=== PATIENT | female | born 1970 | race Caucasian/White ===

== ENCOUNTER 2022-12-05 21:59 | Emergency (ER) | payer MEDICAID ==
[~2022-12-05] VITALS: Ht 175.3 cm; Wt 72.6 kg
[2022-12-05 22:25] VITALS: O2SAT 98
[2022-12-05] MEDS ORDERED: DIVA250T4 PO (22:41)
[2022-12-05] MEDS ORDERED: SERT100T PO (22:41)
[2022-12-05] MEDS ORDERED: LORA0.5T48 PO (22:41)
[2022-12-05] MEDS ORDERED: BUSP5TAB3 PO (22:41)
--- NOTE | 2022-12-05 22:41 | NUR ---
at bedside. exam in progress.
[2022-12-05] MEDS ORDERED: SUMATRIPTAN SUCCINATE 6 MG/0.5 ML VIAL SQ ONE ×2 (22:45→23:34)
[2022-12-05] MEDS ORDERED: KETOROLAC TROMETHAMINE 30 MG INJ IVP ONE (22:45)
[2022-12-05] MEDS ORDERED: METOCLOPRAMIDE HCL 10 MG/2 ML VIAL IV ONE (22:45)
[2022-12-05] MEDS ORDERED: IV NS 1000 ML 1,000 ML IV ONE (22:45)
[2022-12-05 23:01] LABS: HEMATOCRIT 38.2 % (31.2-41.9); MEAN CORPUSCULAR HEMOGLOBIN 28.4 uug (24.7-32.8); MEAN CORPUSCULAR VOLUME 85.2 fL (75.5-95.3); PLATELET COUNT (AUTO) 168 K/uL (179-408)
[2022-12-05 23:11] LABS: CREATININE 0.7 mg/dL (0.6-1.3); POTASSIUM 3.8 mmol/L (3.5-5.1)
[2022-12-05] MEDS ORDERED: KETOROLAC TROMETHAMINE 30 MG INJ ONE (23:33)
[2022-12-05] MEDS ORDERED: METOCLOPRAMIDE HCL 10 MG/2 ML VIAL ONE (23:34)
--- NOTE | 2022-12-06 00:37 | NUR ---
Patient resting in bed, states that headache is better but not gone, will continue to monitor.
[2022-12-06] MEDS ORDERED: CYANOCOBALAMIN 1000 MCG/ML VIAL ONE (00:42)
[2022-12-06] MEDS ORDERED: SUMATRIPTAN SUCCINATE 6 MG/0.5 ML VIAL SQ ONE ×2 (00:45→01:01)
[2022-12-06] MEDS ORDERED: CYANOCOBALAMIN 1000 MCG/ML VIAL IM ONE (00:45)
[2022-12-06] MEDS ORDERED: MAGNESIUM SULFATE/D5W 100 ML ONE ×2 (01:01→01:10)
[2022-12-06] MEDS: MAGNESIUM SULFATE/D5W 100 ML IV SCH ×2 (01:08→02:26)
[2022-12-06] MEDS ORDERED: PROC-11 PO (02:10)
[2022-12-06] MEDS ORDERED: MECO10006 IM (02:10)
[2022-12-06] MEDS ORDERED: NAPR-1009 PO (02:10)
[2022-12-06] MEDS ORDERED: SUMA100T16 PO (02:10)
[2022-12-06] MEDS ORDERED: SYRI-29 MC (02:10)
--- NOTE | 2022-12-06 02:29 | NUR ---
DCD instructions and prescription given to pt. who verbalized understanding. Patient left room ambulatory steady gait. headache 08/03.
== END 2022-12-06 02:38 | disposition home or self-care (01) ==
LOC: ER 21:59
DX: G43.909 Migraine, unspecified, not intractable, without status migrainosus (principal); E53.8 Deficiency of other specified B group vitamins; F17.210 Nicotine dependence, cigarettes, uncomplicated; Z90.710 Acquired absence of both cervix and uterus; Z90.49 Acquired absence of other specified parts of digestive tract; Z88.2 Allergy status to sulfonamides; Z88.8 Allergy status to other drugs, medicaments and biological substances; Z79.899 Other long term (current) drug therapy
CPT/HCPCS: 99284; 96375; 96361; 80048; 82607; 83735; 85025; 36415; 96372 ×3; 96365; 96366; J1885; J2765; J3030 ×2; J3420; J3475 ×2; J7040; A4663

== ENCOUNTER 2022-12-18 14:07 | Emergency (ER) | payer MEDICAID ==
[~2022-12-18] VITALS: Ht 175.3 cm; Wt 72.6 kg
[~2022-12-18 14:07] MED LIST: BUSP5TAB3 PO; DIVA250T4 PO; LORA0.5T48 PO; MECO10006 IM; NAPR-1009 PO; PROC-11 PO; SERT100T PO; SUMA100T16 PO; SYRI-29 MC
[2022-12-18 14:43] VITALS: O2SAT 98
[2022-12-18] MEDS ORDERED: IV NORMAL SALINE 1000 ML BAG IV ONE (15:00)
[2022-12-18] MEDS ORDERED: DEXAMETHASONE SOD PHOSPHATE 4 MG INJ IV ONE (15:00)
[2022-12-18] MEDS ORDERED: METOCLOPRAMIDE HCL 10 MG/2 ML VIAL IV ONE (15:00)
[2022-12-18] MEDS ORDERED: ACETAMINOPHEN ES 500 MG TABLET PO ONE (15:00)
[2022-12-18] MEDS ORDERED: ACETAMINOPHEN ES 500 MG TABLET ONE (15:06)
[2022-12-18] MEDS ORDERED: DEXAMETHASONE SOD PHOSPHATE 4 MG INJ ONE (15:06)
[2022-12-18] MEDS ORDERED: METOCLOPRAMIDE HCL 10 MG/2 ML VIAL ONE (15:06)
[2022-12-18 15:14] LABS: MEAN CORPUSCULAR HEMOGLOBIN 28.1 uug (24.7-32.8); MEAN CORPUSCULAR VOLUME 85.8 fL (75.5-95.3); PLATELET COUNT (AUTO) 182 K/uL (179-408)
[2022-12-18 15:31] LABS: CREATININE 0.7 mg/dL (0.6-1.3); POTASSIUM 3.8 mmol/L (3.5-5.1)
[2022-12-18 15:44] LABS: *AMPHETAMINE, URINE NEGATIVE (NEGATIVE); *CANNABINOID, URINE POSITIVE (NEGATIVE); *COCCAINE, URINE NEGATIVE (NEGATIVE); *PHENCYCLIDINE SCREEN,URINE NEGATIVE (NEGATIVE)
[2022-12-18] MEDS ORDERED: IOHEXOL 350 100 ML INFUS..BTL ONE (16:10)
[2022-12-18] MEDS ORDERED: SWABABLE VALVE TRANSFER SET EA MC ONE (16:11)
[2022-12-18] MEDS ORDERED: IV NORMAL SALINE 250 ML IV ONE (16:11)
[2022-12-18] MEDS ORDERED: KETOROLAC TROMETHAMINE 30 MG INJ IVP ONE (17:00)
[2022-12-18] MEDS ORDERED: KETOROLAC TROMETHAMINE 30 MG INJ ONE (17:01)
== END 2022-12-18 18:05 | disposition home or self-care (01) ==
LOC: ER 14:07
DX: G43.909 Migraine, unspecified, not intractable, without status migrainosus (principal); F17.210 Nicotine dependence, cigarettes, uncomplicated; R07.89 Other chest pain; Z90.710 Acquired absence of both cervix and uterus; Z90.49 Acquired absence of other specified parts of digestive tract; Z88.2 Allergy status to sulfonamides; Z88.8 Allergy status to other drugs, medicaments and biological substances; Z79.899 Other long term (current) drug therapy
CPT/HCPCS: 36415; 70450; 70496; 71045; 85025; 85651; 93005; A4663; A9150; G0480; J1100; J1885; J2765; J7040; Q9967

== ENCOUNTER 2023-08-15 18:48 | Emergency (ER) | payer MEDICAID | END 2023-08-15 19:10 | disposition left against medical advice (07) | LOC: ER 18:54 | DX: R05.9 Cough, unspecified (principal); Z53.21 Procedure and treatment not carried out due to patient leaving prior to being seen by health care provider ==

== ENCOUNTER 2023-11-02 13:50 | Emergency (ER) | payer MEDICAID ==
[~2023-11-02] VITALS: Ht 175.3 cm; Wt 72.6 kg
[2023-11-02] MEDS ORDERED: TDAP DIPH,PERTUSS,TET VAC/PF 0.5 ML DISP.SYRIN IM ONE (14:15)
[2023-11-02] MEDS ORDERED: AMOXICILLIN-CLAVUL 875-125MG TABLET ONE (14:16)
[2023-11-02] MEDS: TDAP DIPH,PERTUSS,TET VAC/PF 0.5 ML DISP.SYRIN IM ONE (14:36)
[2023-11-02] MEDS: AMOXICILLIN-CLAVUL 875-125MG TABLET PO ONE (14:37)
[2023-11-02] MEDS ORDERED: ACETAMINOPHEN ES 500 MG TABLET ONE (14:38)
[2023-11-02] MEDS ORDERED: LORAZEPAM 0.5 MG TABLET ONE (14:38)
[2023-11-02] MEDS ORDERED: IBUPROFEN 400 MG TABLET ONE (14:39)
[2023-11-02] MEDS: LORAZEPAM 0.5 MG TABLET PO ONE (14:41)
[2023-11-02] MEDS: ACETAMINOPHEN ES 500 MG TABLET PO ONE (14:41)
[2023-11-02] MEDS: IBUPROFEN 400 MG TABLET PO ONE (14:41)
[2023-11-02 15:15] LABS: BASOPHILS % (AUTO) 0.5 % (0.0-2.0); EOSINOPHILS % (AUTO) 0.4 % (0.0-7.0); HEMATOCRIT 39.8 % (31.2-41.9); HEMOGLOBIN 13.1 g/dL (10.9-14.3); LYMPHOCYTES # (AUTO) 1.8 K/uL (0.8-4.8); LYMPHOCYTES % (AUTO) 19.7 % (20.5-51.5); MEAN CORPUSCULAR HEMOGLOBIN 27.9 uug (24.7-32.8); MEAN CORPUSCULAR HGB CONC 33 g/dL (32.3-35.6); MEAN CORPUSCULAR VOLUME 84.6 fL (75.5-95.3); MONOCYTES # (AUTO) 0.7 K/uL (0.1-1.30); MONOCYTES % (AUTO) 7.5 % (0.0-11.0); NEUTROPHILS # (AUTO) 6.5 K/uL (1.8-8.9); NEUTROPHILS % (AUTO) 71.9 % (38.5-71.5); PLATELET COUNT (AUTO) 207 K/uL (179-408); RED BLOOD CELL COUNT(AUTO) 4.71 MIL/uL (3.63-4.92); RED CELL DISTRIBUTION WIDTH 13.6 % (12.3-17.7); WHITE BLOOD COUNT (AUTO) 9.1 K/uL (3.8-11.8)
[2023-11-02 15:20] LABS: DIFFERENTIAL COMMENT 1
[2023-11-02 15:23] LABS: CALCIUM 9.1 mg/dL (8.5-10.1); CARBON DIOXIDE 25 mmol/L (21-32); CHLORIDE 107 mmol/L (98-107); CREATININE 0.8 mg/dL (0.6-1.3); GLUCOSE 83 mg/dL (74-106); POTASSIUM 3.9 mmol/L (3.5-5.1); SODIUM SERUM 142 mmol/L (136-145); UREA NITROGEN, BLOOD 15 mg/dL (7-18)
[2023-11-02 15:28] LABS: ALANINE AMINOTRANSFERASE 16 U/L (14-59); ALBUMIN 3.8 g/dL (3.4-5.0); ALKALINE PHOSPHATASE 47 U/L (50-136); ASPARTATE AMINOTRANSFERASE < 5 U/L (15-37); BILIRUBIN,TOTAL 0.6 mg/dL (0.2-1.0); LIPASE 29 U/L (16-77)
[2023-11-02] MEDS ORDERED: HYDR-4209 PO (15:41)
[2023-11-02] MEDS ORDERED: AMOX-430 PO (15:41)
[2023-11-02 15:57] VITALS: BP 136/78; TEMP 98.2; O2SAT 97
== END 2023-11-02 16:24 | disposition home or self-care (01) ==
LOC: ER 13:52
DX: S60.211A Contusion of right wrist, initial encounter (principal); G43.909 Migraine, unspecified, not intractable, without status migrainosus; F32.A Depression, unspecified; F17.200 Nicotine dependence, unspecified, uncomplicated; Z90.49 Acquired absence of other specified parts of digestive tract; Z79.899 Other long term (current) drug therapy; Z88.2 Allergy status to sulfonamides; W50.3XXA Accidental bite by another person, initial encounter; Y93.89 Activity, other specified; Y92.89 Other specified places as the place of occurrence of the external cause; Y99.8 Other external cause status
CPT/HCPCS: 36415; 83690; 85025; 90715; A4606; A4663; A9150

== ENCOUNTER 2023-11-17 21:55 | Emergency (ER) | payer MEDICAID ==
[~2023-11-17] VITALS: Ht 175.3 cm; Wt 72.6 kg
[~2023-11-17 21:55] MED LIST changes: +AMOX-430 PO; +HYDR-4209 PO
[2023-11-17 22:53] LABS: *BLOOD, URINE 3+ (NEGATIVE); *COLOR,URINE YELLOW (YELLOW); *KETONES,URINE NEGATIVE (NEGATIVE); *UROBILINOGEN,URINE 0.2 E.U./dl (NORMAL); LEUKOCYTE ESTERASE ,URINE TRACE (NEGATIVE); NITRITE, URINE POSITIVE (NEGATIVE); UGLUCOSE NEGATIVE (NEGATIVE)
[2023-11-17 22:58] LABS: *BILIRUBIN,URIN 1+ (NEGATIVE); *CLARITY,URINE SLIGHTLY CLOUDY (CLEAR); *PROTEIN,URINE 3+ (NEGATIVE)
[2023-11-17] MEDS ORDERED: ONDANSETRON 4 MG/2 ML VIAL ONE (22:59)
[2023-11-17] MEDS ORDERED: MORPHINE SULFATE 4 MG/1 ML DISP.SYRIN ONE (22:59)
[2023-11-17] MEDS: MORPHINE SULFATE 2 MG/1 ML DISP.SYRIN IV ONE (23:06)
[2023-11-17] MEDS: ONDANSETRON 4 MG/2 ML VIAL IV ONE (23:06)
[2023-11-17 23:09] LABS: BASOPHILS % (AUTO) 0.4 % (0.0-2.0); CALCIUM 8.9 mg/dL (8.5-10.1); CREATININE 0.7 mg/dL (0.6-1.3); EOSINOPHILS # (AUTO) 0.2 K/uL (0.0-0.7); EOSINOPHILS % (AUTO) 1.7 % (0.0-7.0); HEMATOCRIT 38.8 % (31.2-41.9); HEMOGLOBIN 12.5 g/dL (10.9-14.3); LYMPHOCYTES # (AUTO) 2.9 K/uL (0.8-4.8); LYMPHOCYTES % (AUTO) 23.9 % (20.5-51.5); MEAN CORPUSCULAR HEMOGLOBIN 27.2 uug (24.7-32.8); MEAN CORPUSCULAR HGB CONC 32 g/dL (32.3-35.6); MEAN CORPUSCULAR VOLUME 84.3 fL (75.5-95.3); MONOCYTES # (AUTO) 0.8 K/uL (0.1-1.30); MONOCYTES % (AUTO) 6.8 % (0.0-11.0); NEUTROPHILS # (AUTO) 8.3 K/uL (1.8-8.9); NEUTROPHILS % (AUTO) 67.2 % (38.5-71.5); PLATELET COUNT (AUTO) 207 K/uL (179-408); POTASSIUM 3.5 mmol/L (3.5-5.1); RED BLOOD CELL COUNT(AUTO) 4.61 MIL/uL (3.63-4.92); RED CELL DISTRIBUTION WIDTH 13.7 % (12.3-17.7); WHITE BLOOD COUNT (AUTO) 12.3 K/uL (3.8-11.8)
[2023-11-17] MEDS: IV NORMAL SALINE 500 ML BAG IV ONE (23:13)
[2023-11-17 23:15] LABS: ALBUMIN 3.9 g/dL (3.4-5.0); BILIRUBIN,TOTAL 0.6 mg/dL (0.2-1.0); MAGNESIUM 2.2 mg/dL (1.8-2.4); TOTAL PROTEIN, SERUM 7.4 g/dL (6.4-8.2)
[2023-11-17 23:16] LABS: C-REACTIVE PROTEIN 0.33 mg/dL (0.00-0.30)
[2023-11-17] MEDS ORDERED: CEFTRIAXONE /D5W 50ML IVPB **ER PYXIS IV ONE (23:28)
[2023-11-17 23:36] LABS: BACTERIA,URINE MANY /HPF (NONE SEEN); RBC,URINE TNTC /HPF (0-3); SQUAMOUS EPITHELIAL CELL,UR FEW /HPF (NONE SEEN)
[2023-11-17] MEDS: CEFTRIAXONE 1 G in IV DEXTROSE 5% 50 ML IV ONE (23:37)
[2023-11-18] MEDS ORDERED: DICYCLOMINE HCL 20 MG TABLET ONE (00:28)
[2023-11-18] MEDS: DICYCLOMINE HCL 10 MG CAPSULE PO STA (00:32)
[2023-11-18] MEDS: KETOROLAC TROMETHAMINE 15 MG INJ IVP ONE (00:32)
[2023-11-18] MEDS ORDERED: CEPH500C2 PO (02:02)
[2023-11-18] MEDS ORDERED: ONDA4TAB5 PO (02:02)
[2023-11-18] MEDS ORDERED: DICY10CA13 PO (02:02)
[2023-11-18 02:16] VITALS: BP 115/82; TEMP 98.6; O2SAT 99
== END 2023-11-18 02:17 | disposition home or self-care (01) ==
LOC: ER 22:04
DX: N39.0 Urinary tract infection, site not specified (principal); R31.9 Hematuria, unspecified; R10.9 Unspecified abdominal pain; M54.50 Low back pain, unspecified; F17.200 Nicotine dependence, unspecified, uncomplicated; Z98.890 Other specified postprocedural states; Z79.899 Other long term (current) drug therapy; Z88.2 Allergy status to sulfonamides
CPT/HCPCS: 99285; 74176; 96365; 96375 ×2; 80053; 81001; 83735; 85025; 86140; 36415; 83605; 87086; J0696; J2405; J2270; J7040; J1885

== ENCOUNTER 2024-06-09 17:43 | Inpatient (IN) | payer MEDICAID ==
[~2024-06-09] VITALS: Ht 175.3 cm; Wt 77.1 kg
[~2024-06-09 17:43] MED LIST changes: +CEPH500C2 PO; +DICY10CA13 PO; +ONDA4TAB5 PO
[2024-06-09 21:22] LABS: BASOPHILS % (AUTO) 0.6 % (0.0-2.0); EOSINOPHILS # (AUTO) 0.1 K/uL (0.0-0.7); EOSINOPHILS % (AUTO) 0.9 % (0.0-7.0); HEMATOCRIT 37.8 % (31.2-41.9); HEMOGLOBIN 12.9 g/dL (10.9-14.3); LYMPHOCYTES # (AUTO) 2.4 K/uL (0.8-4.8); LYMPHOCYTES % (AUTO) 31.6 % (20.5-51.5); MEAN CORPUSCULAR HEMOGLOBIN 29.4 uug (24.7-32.8); MEAN CORPUSCULAR HGB CONC 34 g/dL (32.3-35.6); MEAN CORPUSCULAR VOLUME 85.8 fL (75.5-95.3); MONOCYTES # (AUTO) 0.5 K/uL (0.1-1.30); MONOCYTES % (AUTO) 6.5 % (0.0-11.0); NEUTROPHILS # (AUTO) 4.6 K/uL (1.8-8.9); NEUTROPHILS % (AUTO) 60.4 % (38.5-71.5); PLATELET COUNT (AUTO) 221 K/uL (179-408); RED CELL DISTRIBUTION WIDTH 14.4 % (12.3-17.7); WHITE BLOOD COUNT (AUTO) 7.5 K/uL (3.8-11.8)
[2024-06-09 21:24] LABS: DIFFERENTIAL COMMENT 1
[2024-06-09 21:31] LABS: CALCIUM 8.9 mg/dL (8.5-10.1); CARBON DIOXIDE 31 mmol/L (21-32); CHLORIDE 108 mmol/L (98-107); CREATININE 0.8 mg/dL (0.6-1.3); GLUCOSE 85 mg/dL (74-106); POTASSIUM 3.8 mmol/L (3.5-5.1); SODIUM SERUM 148 mmol/L (136-145); UREA NITROGEN, BLOOD 20 mg/dL (7-18)
[2024-06-09 21:40] LABS: ALANINE AMINOTRANSFERASE 24 U/L (14-59); ALBUMIN 4.1 g/dL (3.4-5.0); ALKALINE PHOSPHATASE 47 U/L (50-136); ASPARTATE AMINOTRANSFERASE 16 U/L (15-37); BILIRUBIN,DIRECT 0.1 mg/dL (0.0-0.2); BILIRUBIN,TOTAL 0.6 mg/dL (0.2-1.0); LIPASE 33 U/L (16-77); TOTAL PROTEIN, SERUM 7.3 g/dL (6.4-8.2)
[2024-06-09] MEDS: PANTOPRAZOLE SODIUM IV 80 MG in IV DEXTROSE 5% 100 ML IV ONE (22:00)
[2024-06-09] MEDS: ONDANSETRON 4 MG/2 ML VIAL IV ONE (22:00)
[2024-06-09] MEDS: IV NORMAL SALINE 1000 ML BAG IV ONE (22:00)
[2024-06-09] MEDS: HYDROMORPHONE 1 MG/1 ML DISP.SYRIN IV ONE (22:00)
[2024-06-09] MEDS ORDERED: PANTOPRAZOLE SODIUM 40 MG VIAL ONE (22:58)
[2024-06-09] MEDS ORDERED: ONDANSETRON 4 MG/2 ML VIAL ONE (22:58)
[2024-06-09] MEDS ORDERED: HYDROMORPHONE 1 MG/1 ML DISP.SYRIN ONE (22:59)
[2024-06-09] MEDS ORDERED: IOHEXOL 300MG/ML 100 ML INFUS..BTL ONE (23:30)
[2024-06-09] MEDS ORDERED: IV NORMAL SALINE 250 ML IV ONE (23:31)
[2024-06-09] MEDS ORDERED: SWABABLE VALVE TRANSFER SET EA MC ONE (23:31)
[2024-06-09 23:39] LABS: *OCCULT BLOOD STOOL NEGATIVE (NEGATIVE)
[2024-06-10] MEDS ORDERED: ACETAMINOPHEN 325 MG TABLET PO PRN (01:00)
[2024-06-10] MEDS ORDERED: MAGNESIUM HYDROXIDE 30 ML LIQUID UDC PO PRN (01:00)
[2024-06-10] MEDS: IV D5W 1000ML 1,000 ML IV SCH (01:00)
[2024-06-10] MEDS: HYDROMORPHONE 1 MG/1 ML DISP.SYRIN IV ONE (01:30)
[2024-06-10] MEDS: ONDANSETRON 4 MG/2 ML VIAL IV ONE (01:30)
[2024-06-10] MEDS ORDERED: ONDANSETRON 4 MG/2 ML VIAL ONE (01:33)
[2024-06-10] MEDS ORDERED: HYDROMORPHONE 1 MG/1 ML DISP.SYRIN ONE (01:33)
[2024-06-10] MEDS: ONDANSETRON 4 MG/2 ML VIAL IV PRN (06:46)
[2024-06-10] MEDS: MORPHINE SULFATE 4 MG/1 ML DISP.SYRIN IV PRN (06:47)
[2024-06-10 06:56] LABS: BASOPHILS % (AUTO) 0.7 % (0.0-2.0); EOSINOPHILS # (AUTO) 0.1 K/uL (0.0-0.7); EOSINOPHILS % (AUTO) 1.6 % (0.0-7.0); HEMATOCRIT 34.7 % (31.2-41.9); HEMOGLOBIN 11.8 g/dL (10.9-14.3); LYMPHOCYTES # (AUTO) 2.3 K/uL (0.8-4.8); LYMPHOCYTES % (AUTO) 39.7 % (20.5-51.5); MEAN CORPUSCULAR HEMOGLOBIN 29.5 uug (24.7-32.8); MEAN CORPUSCULAR HGB CONC 34 g/dL (32.3-35.6); MEAN CORPUSCULAR VOLUME 86.4 fL (75.5-95.3); MONOCYTES # (AUTO) 0.5 K/uL (0.1-1.30); MONOCYTES % (AUTO) 8.7 % (0.0-11.0); NEUTROPHILS # (AUTO) 2.8 K/uL (1.8-8.9); NEUTROPHILS % (AUTO) 49.3 % (38.5-71.5); PLATELET COUNT (AUTO) 191 K/uL (179-408); RED BLOOD CELL COUNT(AUTO) 4.01 MIL/uL (3.63-4.92); WHITE BLOOD COUNT (AUTO) 5.7 K/uL (3.8-11.8)
[2024-06-10 07:18] LABS: CALCIUM 7.9 mg/dL (8.5-10.1); CREATININE 0.8 mg/dL (0.6-1.3); MAGNESIUM 1.7 mg/dL (1.8-2.4); PHOSPHOROUS 3.7 mg/dL (2.5-4.9); POTASSIUM 3.7 mmol/L (3.5-5.1)
[2024-06-10 07:27] LABS: DIFFERENTIAL COMMENT 1
[2024-06-10] MEDS: PANTOPRAZOLE SODIUM 40 MG VIAL IV SCH (08:14)
[2024-06-10] MEDS ORDERED: MIRT-73 PO (09:46)
[2024-06-10] MEDS ORDERED: DULO60CA45 PO (09:46)
[2024-06-10] MEDS ORDERED: DICL75TA5 PO (09:46)
[2024-06-10] MEDS ORDERED: LORA-259 PO (09:46)
[2024-06-10] MEDS: MAGNESIUM SULFATE/D5W 100 ML IV SCH (11:06)
[2024-06-10 11:24] VITALS: BP 103/58; TEMP 97.6; O2SAT 98
[2024-06-10] MEDS ORDERED: ONDANSETRON 4 MG/2 ML VIAL IV ONE (13:30)
[2024-06-10 15:24] VITALS: BP 104/60; TEMP 98.4; O2SAT 97
[2024-06-10 19:00] VITALS: BP 96/59; TEMP 97.8; O2SAT 98
[2024-06-11 06:00] VITALS: BP 93/52; TEMP 98.1; O2SAT 95
[2024-06-11] MEDS: IV D5W 1000ML 1,000 ML IV PRN (06:14)
[2024-06-11 07:03] LABS: BASOPHILS # (AUTO) 0.1 K/UL (0.0-0.2); BASOPHILS % (AUTO) 1.2 % (0.0-2.0); EOSINOPHILS # (AUTO) 0.1 K/uL (0.0-0.7); EOSINOPHILS % (AUTO) 1.6 % (0.0-7.0); HEMATOCRIT 35.8 % (31.2-41.9); HEMOGLOBIN 12.3 g/dL (10.9-14.3); LYMPHOCYTES % (AUTO) 38.7 % (20.5-51.5); MEAN CORPUSCULAR HEMOGLOBIN 29.6 uug (24.7-32.8); MEAN CORPUSCULAR HGB CONC 35 g/dL (32.3-35.6); MEAN CORPUSCULAR VOLUME 85.8 fL (75.5-95.3); MONOCYTES # (AUTO) 0.4 K/uL (0.1-1.30); MONOCYTES % (AUTO) 8.5 % (0.0-11.0); NEUTROPHILS # (AUTO) 2.5 K/uL (1.8-8.9); PLATELET COUNT (AUTO) 184 K/uL (179-408); RED BLOOD CELL COUNT(AUTO) 4.17 MIL/uL (3.63-4.92); RED CELL DISTRIBUTION WIDTH 13.8 % (12.3-17.7); WHITE BLOOD COUNT (AUTO) 5.1 K/uL (3.8-11.8)
[2024-06-11 07:16] LABS: CALCIUM 8.1 mg/dL (8.5-10.1); CREATININE 0.9 mg/dL (0.6-1.3); POTASSIUM 3.9 mmol/L (3.5-5.1)
[2024-06-11 07:29] LABS: DIFFERENTIAL COMMENT 1
[2024-06-11 12:48] VITALS: BP 108/64; TEMP 98.2; O2SAT 99
[2024-06-11 15:30] VITALS: BP 107/61; TEMP 97.8; O2SAT 99
[2024-06-11] MEDS ORDERED: DICLOFENAC 75 MG TABLET.DR PO PRN (17:15)
[2024-06-11] MEDS ORDERED: LORAZEPAM 1 MG TABLET PO PRN (17:15)
[2024-06-11] MEDS: DULOXETINE 60 MG CAPSULE.DR PO SCH (17:34)
[2024-06-11] MEDS: DIVALPROEX 250 MG TABLET.DR PO SCH (17:34)
[2024-06-11] MEDS: MIRTAZAPINE 15 MG TABLET PO SCH (20:48)
[2024-06-11] MEDS ORDERED: MIRTAZAPINE 15 MG TAB.RAPDIS PO SCH (21:00)
[2024-06-11 21:07] VITALS: BP 112/68; TEMP 98.1; O2SAT 96
[2024-06-12 05:30] VITALS: BP 105/67; TEMP 97.5; O2SAT 96
[2024-06-12 06:37] LABS: BASOPHILS % (AUTO) 0.5 % (0.0-2.0); EOSINOPHILS # (AUTO) 0.1 K/uL (0.0-0.7); EOSINOPHILS % (AUTO) 1.4 % (0.0-7.0); HEMATOCRIT 39.8 % (31.2-41.9); HEMOGLOBIN 13.3 g/dL (10.9-14.3); LYMPHOCYTES # (AUTO) 1.9 K/uL (0.8-4.8); LYMPHOCYTES % (AUTO) 33.7 % (20.5-51.5); MEAN CORPUSCULAR HGB CONC 33 g/dL (32.3-35.6); MEAN CORPUSCULAR VOLUME 86.7 fL (75.5-95.3); MONOCYTES # (AUTO) 0.6 K/uL (0.1-1.30); MONOCYTES % (AUTO) 10.1 % (0.0-11.0); NEUTROPHILS % (AUTO) 54.3 % (38.5-71.5); PLATELET COUNT (AUTO) 201 K/uL (179-408); RED BLOOD CELL COUNT(AUTO) 4.59 MIL/uL (3.63-4.92); RED CELL DISTRIBUTION WIDTH 13.8 % (12.3-17.7); WHITE BLOOD COUNT (AUTO) 5.6 K/uL (3.8-11.8)
[2024-06-12 06:46] LABS: CALCIUM 8.6 mg/dL (8.5-10.1); CREATININE 0.9 mg/dL (0.6-1.3); POTASSIUM 3.9 mmol/L (3.5-5.1)
[2024-06-12 07:13] LABS: DIFFERENTIAL COMMENT 1
[2024-06-12 11:16] VITALS: BP 122/65; TEMP 97.9; O2SAT 99
[2024-06-12 16:41] VITALS: BP 119/59; TEMP 98.1; O2SAT 98
[2024-06-12] MEDS: BLOOD SUGAR DIAGNOSTIC 1 EACH STRIP VI ONE (19:46)
[2024-06-12 20:00] VITALS: BP 123/73; TEMP 98.3; O2SAT 95
[2024-06-13 06:38] VITALS: BP 114/87; TEMP 97.7; O2SAT 98
[2024-06-13] MEDS ORDERED: PANTOPRAZOLE SODIUM 40 MG TABLET.DR PO SCH (07:00)
[2024-06-13] MEDS ORDERED: PANT40TA49 PO (07:41)
[2024-06-13] MEDS: PANTOPRAZOLE SODIUM 40 MG TABLET.DR PO SCH (07:56)
== END 2024-06-13 09:12 | disposition home or self-care (01) | DRG 241 ==
LOC: ER 17:43 → MEDSURG3 06-10 01:05
PROVIDERS: ATTEND Internal Medicine
PROC: 0DB68ZX Excision of Stomach, Via Natural or Artificial Opening Endoscopic, Diagnostic (ICD-10-PCS; principal; 2024-06-12)
DX: K29.70 Gastritis, unspecified, without bleeding (principal); E87.0 Hyperosmolality and hypernatremia; E86.0 Dehydration; Z90.49 Acquired absence of other specified parts of digestive tract; Z98.84 Bariatric surgery status; Z90.710 Acquired absence of both cervix and uterus; M79.7 Fibromyalgia; Z87.11 Personal history of peptic ulcer disease; F43.10 Post-traumatic stress disorder, unspecified; Z88.2 Allergy status to sulfonamides; Z88.8 Allergy status to other drugs, medicaments and biological substances; R79.89 Other specified abnormal findings of blood chemistry; F32.9 Major depressive disorder, single episode, unspecified; F41.9 Anxiety disorder, unspecified; Z87.19 Personal history of other diseases of the digestive system
CPT/HCPCS: 36415; 71045; 83690; 83735; 84100; 84484; 85025; 85730; 86850; 86900; 86901; 88312-TC; 88313-TC; A4606; A4663; G0378; J1171; J2270; J2405; J2470; J3475; J3490; J7040; J7042; J7060; J7070; Q9967